=== PATIENT | female | born 1945 | race Caucasian/White ===

== ENCOUNTER → 2019-10-26 | Outpatient (CLI) | payer OTHER ==
[~2019-10-26] MED LIST: ASPIR 8181 M1 PO; CALCIUM 600 +1 EAC4 PO; FLECAINIDE ACE150 MG PO; LIPITOR 20 MG T20 M1 PO; PROZAC20 M1 PO; THERA M PLUS T1 EAC2 PO; TOPROL XL100 MG PO; TRUSOPT OCUMETE10 ML EA. EYE
[2019-10-26 07:56] LABS: HEMATOCRIT 43.1 % (37.0-47.0); HEMOGLOBIN 14.4 gm/dL (12.0-15.0); MCH 29.9 pg (26.0-34.0); MCHC 33.5 g/dL (28.0-37.0); MCV 89.2 fL (80.0-100.0); RBC 4.83 mil/uL (4.20-5.00); RDW 13.2 % (10.5-14.5); WBC 7.1 thou/uL (4.0-11.0)
[2019-10-26 08:06] LABS: ALBUMIN 3.6 g/dL (3.4-5.0); CALCIUM 9.7 mg/dL (8.5-10.1); POTASSIUM 3.6 mmol/L (3.5-5.1); TOTAL BILIRUBIN 0.5 mg/dL (<0.1-1.0); TOTAL PROTEIN 6.7 g/dL (6.4-8.2)
== END ==
LOC: CAT 10-22 15:01
PROVIDERS: Internal Medicine Cardiovascular Disease
DX: I48.91 Unspecified atrial fibrillation (principal); R91.1 Solitary pulmonary nodule; J84.10 Pulmonary fibrosis, unspecified; M47.814 Spondylosis without myelopathy or radiculopathy, thoracic region

== ENCOUNTER 2019-10-29 06:49 | Observation (INO) | payer OTHER ==
[~2019-10-29] VITALS: Ht 162.6 cm; Wt 96.6 kg
--- NOTE | ~2019-10-29 | P ---
[facility] [place] [address] PROCEDURE REPORT Name: DEVEN GODWIN Room #: 200-I [facility] Charbel Walden.#: [id number] Admission: 10/29/19 Attend Phys: Perfecto Adams MD Discharge: 10/30/19 Date of : 47 Report #: [id number] THIS REPORT FOR: cc: Eliezer Herrera MD, Terry A. MD Couchonnal, Luis F. MD ~ CC: Perfecto Herrera HISTORY: The patient is a patient with recurrent atrial fibrillation, here for AFib ablation. PROCEDURES PERFORMED: 1. Atrial fibrillation ablation, CPT code 04976. 2. 3 mapping, CPT code 78933. 3. Arterial line placement, 87702. 4. Intracardiac echo, CPT code 97566. 5. Second pathway ablation, CPT code 10377. ANESTHESIA: The patient underwent general anesthesia with no anesthesia related complications. DESCRIPTION OF PROCEDURE: The patient underwent informed consent, where we discussed the details of the procedure including the risks, which include but not limited to bleeding, vascular damage, stroke, OH as well as damage to the nooksack conduction system requiring permanent pacemaker. She understood these risks and is willing to proceed. As such, the patient was brought to the EP laboratory in fasting and sedated state, prepped and draped in a sterile fashion. Her pacemaker was reprogrammed prior to the ablation. Next, I obtained access to the right femoral vein x3 and in the right femoral artery x1 for arterial blood pressure monitoring. In the right femoral vein, I placed an 8, 9 and 7-Bruneian short sheath. In the right femoral artery, I placed a 5-Bruneian short sheath. Next, under fluoroscopy, I placed a decapolar catheter easily in the coronary sinus and ICE catheter in the right atrium for mapping. Next, the patient was systemically heparinized using a SL1 sheath and a [place] needle. This was straightforward and I exchanged for the cryo sheath. Via the cryo sheath, I then placed a Biosense Warren Lasso catheter and created a detailed 3D voltage map and left atrial geometry. Next, I placed the cryoballoon into the left atrium and started by isolating the left superior pulmonary vein. I performed 2, 4-minute freezes in the left superior pulmonary vein and this appeared to be isolated. I then turned my attention to the left inferior pulmonary vein. I performed a 4-minute freeze followed by 90-second freeze followed by another 4-minute freeze and there was still not isolation. I then countered clocked the catheter given her anatomy and this resulted in isolation of the vein in 25 seconds. It appeared that there was a small area of activity, still at the anterior portion of this vein. This last freeze was of 3 minutes duration. I then turned my attention to the right superior pulmonary [address] [address] PROCEDURE REPORT Name: DEVEN GODWIN Room #: 200-I [facility] Charbel De Luna#: [id number] Admission: 10/29/19 Attend Phys: Perfecto Adams MD Discharge: 10/30/19 Date of : 47 Report #: [id number] vein. I performed phrenic nerve pacing via the decapolar catheter placed at the subclavian vessel. I performed a 140 second freeze followed by 2-minute freeze. The vein isolated during the first freeze within 60 seconds. I came off early on both of these freezes due to cold attempts. The right inferior pulmonary vein underwent a 4-minute freeze followed by 120-second freeze. The vein isolated within 60 seconds of the first freeze. Next, I created a detailed voltage map of the left atrium and there was evidence of wide circumferential ablation of the pulmonary veins. ATRIAL FLUTTER ABLATION: Next, an atrial flutter ablation was performed. Pre-ablation, the transisthmus conduction time was 150 milliseconds. Ablation was performed using an 8 mm Biosense Warren ablation catheter via the cryo sheath. A line was performed. In post-ablation, there was evidence of bidirectional block with a transisthmus conduction time of 240 milliseconds. Post-ablation, the patient remained in sinus rhythm. The pacemaker was reprogrammed back to its nominal settings and the patient awoke neurologically and hemodynamically intact. The patient received systemic protamine and once ACT was within acceptable range, all catheters and sheaths were pulled. Hemostasis was obtained. CONCLUSIONS: 1. Successful atrial fibrillation ablation with isolation of the pulmonary veins. 2. Successful atrial flutter ablation with evidence of bidirectional block. By: [id number] Perfecto Adams MD /nt
[2019-10-29 07:22] VITALS: BP 150/56
[2019-10-29 07:37] LABS: ABSOLUTE NEUTROPHILS 4.7 thou/uL (1.4-8.2); BASOPHILS 0.5 % (0.0-2.0); EOSINOPHILS 3.7 % (0.0-3.0); HEMATOCRIT 42.1 % (37.0-47.0); HEMOGLOBIN 13.8 gm/dL (12.0-15.0); LYMPHOCYTES 21.4 % (24.0-44.0); MCH 29.8 pg (26.0-34.0); MCHC 32.8 g/dL (28.0-37.0); MCV 90.7 fL (80.0-100.0); MONOCYTES 7.2 % (1.0-8.0); PLATELET COUNT 228 thou/uL (150-400); POLYS 67.2 % (36.0-66.0); RBC 4.64 mil/uL (4.20-5.00); RDW 13.7 % (10.5-14.5)
[2019-10-29 07:50] LABS: CALCIUM 9.9 mg/dL (8.5-10.1); CREATININE 0.9 mg/dL (0.6-1.0); POTASSIUM 3.5 mmol/L (3.5-5.1)
[2019-10-29 07:55] LABS: ALBUMIN 3.5 g/dL (3.4-5.0); TOTAL BILIRUBIN 0.5 mg/dL (<0.1-1.0); TOTAL PROTEIN 6.9 g/dL (6.4-8.2)
[2019-10-29 07:58] LABS: INR 1.1; PROTIME 10.8 Seconds (9.3-11.4)
[2019-10-29] MEDS ORDERED: ASPIR 8181 M1 PO (08:08)
[2019-10-29] MEDS ORDERED: LIPITOR 20 MG T20 M1 PO (08:08)
[2019-10-29] MEDS ORDERED: CALCIUM 600 +1 EAC4 PO (08:09)
[2019-10-29] MEDS ORDERED: TRUSOPT OCUMETE10 ML EA. EYE (08:13)
[2019-10-29] MEDS ORDERED: FLECAINIDE ACE150 MG PO (08:14)
[2019-10-29] MEDS ORDERED: PROZAC20 M1 PO (08:14)
[2019-10-29] MEDS ORDERED: TOPROL XL100 MG PO (08:15)
[2019-10-29] MEDS ORDERED: THERA M PLUS T1 EAC2 PO (08:16)
[2019-10-29 13:25] VITALS: BP 157/70
[2019-10-29 16:20] VITALS: BP 148/67
--- NOTE | 2019-10-29 19:19 | NUR ---
PT ADMITED FROM ER. ADMISSION HX AND ASSESSMENT COMPLETED. VSS. RECEIVED PRN PAIN MED FOR VIRAMONTES WITH PARTIAL RELIEF. RIGHT GROIN INCISION C/D/I. NO HEMATOMA NOTED. POST OP INSTRUCTIONS GIVEN TO PT. PT VERBERLISED UNDERSTANDING. WILL CONTINUE TO MONITOR.
[2019-10-29 19:23] VITALS: BP 129/69
[2019-10-30 00:08] LABS: GLYCOHEMOGLOBIN (HGB A1C) 6.3 % (4.8-5.6)
[2019-10-30 00:42] VITALS: BP 125/34
[2019-10-30 06:00] VITALS: BP 137/65
[2019-10-30 07:10] VITALS: BP 144/54
--- NOTE | 2019-10-30 07:19 | NUR ---
Pt. rested quietly during the night when checked on during frequent rounds. She offers no c/o pain. Dressing to right groin site is intact with small amount of blood. No bruising noted. Flora pena'ashley this am and pt. has already voided. Dgt. at the bedside all shift.
[2019-10-30] MEDS ORDERED: PRADAXA150 MG PO (07:28)
[2019-10-30] MEDS ORDERED: ELIQUIS5 MG PO (08:33)
[2019-10-30 10:10] VITALS: BP 144/54
--- NOTE | 2019-10-30 10:42 | NUR ---
ASSESSMENT CHARTED. PT ALERT AND ORIENTED. VSS. DENIED HAVING PAIN OR DISCOMFORT. ORDERS GIVEN TO DISCHARGE PT TO HOME. DISCHARGE INSTRUCTIONS GIVEN TO PT. PT VERBERLISED UNDERSTANDING. WILL CONTINUE TO MONITOR.
--- NOTE | 2019-11-06 11:07 | D ---
[facility] [place] [address] DISCHARGE SUMMARY Name: DEVEN GODWIN Room #: 200-I [facility] M..#: [id number] Admission: 10/29/19 Attend Phys: Perfecto Adams MD Discharge: 10/30/19 Date of : 47 Report #: [id number] THIS REPORT FOR: cc: Eliezer Herrera MD, Terry A. MD Couchonnal, Luis F. MD ~ THIS REPORT FOR: //name// CC: Perfecto Herrera DISCHARGE DIAGNOSES: 1. Atrial fibrillation. 2. Atrial flutter. 3. Sick sinus syndrome, status post pacemaker. PROCEDURES PERFORMED: Atrial fibrillation and atrial flutter ablation. HOSPITAL COURSE: The patient is a 74-year-old with history of sick sinus syndrome as well as paroxysmal atrial fibrillation/atrial flutter, here for ablation. She underwent successful AFib/ablation with isolation of the pulmonary veins and atrial flutter ablation with bidirectional block. There were no procedure-related complications. HOSPITAL COURSE: She was monitored in the CCU overnight and did well. On day of discharge, she denied any fevers or chills, chest pain, shortness of breath, PND or orthopnea. PHYSICAL EXAMINATION: GENERAL: In no acute distress. HEENT: Oropharynx clear. NECK: Supple, no thyromegaly. HEART: Regular rate and rhythm. No murmurs, rubs or gallops. LUNGS: Clear to auscultation bilaterally. ABDOMEN: Soft, nontender. EXTREMITIES: No clubbing, cyanosis, edema. Right groin with no bruising or hematoma and cranial nerves 2-12 are intact. TELEMETRY: She remained in sinus rhythm and her vitals were stable. As such, she was deemed stable for discharge home. She will continue with her current dose of flecainide, Eliquis, and Toprol therapy. She will follow up with me in 3 months. <ELECTRONICALLY SIGNED> By: Perfecto Adams MD 11/06/19 1107 [id number] Perfecto Adams MD /nt
== END 2019-10-30 11:02 | disposition home or self-care (01) ==
LOC: CATH → 2N 14:22 → CATH 15:06 → ENTRNSPT 10-30 10:33 → EDTRNSPTSTS 10-30 10:36 → 2N 10-30 11:02
PROVIDERS: ADMIT Internal Medicine Cardiovascular Disease
DX: I48.91 Unspecified atrial fibrillation (principal); I48.92 Unspecified atrial flutter; I49.5 Sick sinus syndrome
CPT/HCPCS: 65020; 65040; 70005

== ENCOUNTER → 2020-02-02 | Outpatient (CLI) | payer OTHER ==
[~2020-02-02] MED LIST changes: +ELIQUIS5 MG PO; +PRADAXA150 MG PO
== END ==
LOC: SJCVC 11:07
PROVIDERS: ATTEND Internal Medicine Cardiovascular Disease
DX: Z45.018 Encounter for adjustment and management of other part of cardiac pacemaker (principal); R94.31 Abnormal electrocardiogram [ECG] [EKG]; I44.7 Left bundle-branch block, unspecified; I48.0 Paroxysmal atrial fibrillation; I48.3 Typical atrial flutter; E55.9 Vitamin D deficiency, unspecified; Z79.899 Other long term (current) drug therapy

== ENCOUNTER → 2020-05-19 | Outpatient (CLI) | payer OTHER | LOC: SJCVC 14:20 | PROVIDERS: ATTEND Internal Medicine Cardiovascular Disease | DX: R94.31 Abnormal electrocardiogram [ECG] [EKG] (principal); I48.91 Unspecified atrial fibrillation; I25.10 Atherosclerotic heart disease of native coronary artery without angina pectoris; I11.0 Hypertensive heart disease with heart failure; I50.9 Heart failure, unspecified; E66.9 Obesity, unspecified; Z82.49 Family history of ischemic heart disease and other diseases of the circulatory system; Z79.899 Other long term (current) drug therapy ==